=== PATIENT | female | born 1950 | race African-American/Black ===

== ENCOUNTER 2019-01-15 19:50 | Emergency (ER) | payer OTHER ==
[~2019-01-15] VITALS: Ht 149.9 cm; Wt 70.8 kg
[2019-01-15 22:55] VITALS: BP 186/79
== END 2019-01-15 23:50 | disposition home or self-care (01) ==
LOC: ER 19:50
DX: M54.41 Lumbago with sciatica, right side (principal); I10 Essential (primary) hypertension; J45.909 Unspecified asthma, uncomplicated; Z88.5 Allergy status to narcotic agent

== ENCOUNTER 2019-03-03 14:44 | Emergency (ER) | payer OTHER ==
[~2019-03-03] VITALS: Ht 149.9 cm; Wt 69.0 kg
[2019-03-03 14:50] VITALS: BP 141/68
[2019-03-03] MEDS ORDERED: K-DUR10 MEQ PO (14:59)
[2019-03-03] MEDS ORDERED: HYDROCODON-ACE1 EAC8 PO (14:59)
[2019-03-03] MEDS ORDERED: OMEPRAZOLE 20 M20 M1 PO (15:39)
[2019-03-03] MEDS ORDERED: CYCLOBENZAPRINE5 MG PO (15:52)
[2019-03-03] MEDS ORDERED: MOBIC15 MG PO (15:52)
[2019-03-04] MEDS ORDERED: NORFLEX100 MG PO (16:21)
== END 2019-03-03 15:55 | disposition home or self-care (01) ==
LOC: ER 14:44
DX: S39.012A Strain of muscle, fascia and tendon of lower back, initial encounter (principal); I10 Essential (primary) hypertension; J45.909 Unspecified asthma, uncomplicated; Z88.6 Allergy status to analgesic agent; Z88.8 Allergy status to other drugs, medicaments and biological substances; X58.XXXA Exposure to other specified factors, initial encounter; Y93.89 Activity, other specified; Y92.89 Other specified places as the place of occurrence of the external cause; Y99.8 Other external cause status

== ENCOUNTER 2019-03-04 12:19 | Emergency (ER) | payer OTHER ==
[~2019-03-04] VITALS: Ht 149.9 cm; Wt 69.0 kg
[~2019-03-04 12:19] MED LIST: CYCLOBENZAPRINE5 MG PO; HYDROCODON-ACE1 EAC8 PO; K-DUR10 MEQ PO; MOBIC15 MG PO; OMEPRAZOLE 20 M20 M1 PO
[2019-03-04] MEDS ORDERED: NORFLEX100 MG PO (16:21)
[2019-03-04 16:41] VITALS: BP 150/69
== END 2019-03-04 16:43 | disposition home or self-care (01) ==
LOC: ER 12:19
DX: R51 Headache (principal); I10 Essential (primary) hypertension; J45.909 Unspecified asthma, uncomplicated; Z88.5 Allergy status to narcotic agent; Z88.8 Allergy status to other drugs, medicaments and biological substances; Z79.899 Other long term (current) drug therapy

== ENCOUNTER 2019-09-17 18:01 | Emergency (ER) | payer OTHER ==
[~2019-09-17] VITALS: Ht 149.9 cm; Wt 66.7 kg
[~2019-09-17 18:01] MED LIST changes: +NORFLEX100 MG PO
[2019-09-17] MEDS ORDERED: TORADOL 10 MG T10 MG PO (20:07)
[2019-09-17 20:41] VITALS: BP 118/50
== END 2019-09-17 20:42 | disposition home or self-care (01) ==
LOC: ER 18:01
DX: M48.061 Spinal stenosis, lumbar region without neurogenic claudication (principal); I10 Essential (primary) hypertension; J45.909 Unspecified asthma, uncomplicated; E07.9 Disorder of thyroid, unspecified; Z79.899 Other long term (current) drug therapy; Z88.8 Allergy status to other drugs, medicaments and biological substances; Z88.5 Allergy status to narcotic agent

== ENCOUNTER 2019-10-16 13:29 | Emergency (ER) | payer OTHER ==
[~2019-10-16] VITALS: Ht 124.5 cm; Wt 69.0 kg
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
[~2019-10-16 13:29] MED LIST changes: +TORADOL 10 MG T10 MG PO
[2019-10-16 13:51] VITALS: BP 145/71
== END 2019-10-16 13:51 | disposition left against medical advice (07) ==
LOC: ER 13:29
DX: M54.5 Low back pain (principal); Z53.21 Procedure and treatment not carried out due to patient leaving prior to being seen by health care provider; V49.9XXA Car occupant (driver) (passenger) injured in unspecified traffic accident, initial encounter; Y93.89 Activity, other specified; Y92.89 Other specified places as the place of occurrence of the external cause; Y99.8 Other external cause status

== ENCOUNTER → 2020-06-19 | Outpatient (CLI) | payer OTHER | LOC: RAD 15:12 | PROVIDERS: ATTEND Nurse Practitioner | DX: S92.341A Displaced fracture of fourth metatarsal bone, right foot, initial encounter for closed fracture (principal); M79.89 Other specified soft tissue disorders; X58.XXXA Exposure to other specified factors, initial encounter; Y92.89 Other specified places as the place of occurrence of the external cause; Y93.89 Activity, other specified; Y99.8 Other external cause status ==

== ENCOUNTER → 2020-09-04 | Outpatient (CLI) | payer OTHER | LOC: ULTRA 16:11 | PROVIDERS: ATTEND Nurse Practitioner | DX: R22.43 Localized swelling, mass and lump, lower limb, bilateral (principal) ==

== ENCOUNTER 2020-11-10 16:40 | Emergency (ER) | payer OTHER ==
[~2020-11-10] VITALS: Ht 149.9 cm; Wt 68.5 kg
[2020-11-10 17:07] VITALS: BP 127/67
[2020-11-10] MEDS ORDERED: CATAPRES-TTS 20.2 MG PO (17:11)
[2020-11-10] MEDS ORDERED: LEVOTHYROXINE75 MC1 PO (17:12)
[2020-11-10] MEDS ORDERED: SIMVASTATIN80 MG PO (17:12)
[2020-11-10] MEDS ORDERED: HYDROCODON-ACE1 EAC7 PO (18:15)
== END 2020-11-10 18:20 | disposition home or self-care (01) ==
LOC: ER 16:40
DX: M54.41 Lumbago with sciatica, right side (principal); I10 Essential (primary) hypertension; J45.909 Unspecified asthma, uncomplicated; Z79.899 Other long term (current) drug therapy; Z88.5 Allergy status to narcotic agent; Z88.8 Allergy status to other drugs, medicaments and biological substances

== ENCOUNTER → 2020-12-09 | Outpatient (CLI) | payer OTHER ==
[~2020-12-09] VITALS: Ht 149.9 cm; Wt 72.1 kg
[~2020-12-09] MED LIST changes: +CATAPRES-TTS 20.2 MG PO; +CATAPRES0.2 MG PO; +HYDROCODON-ACE1 EAC7 PO; +LEVOTHYROXINE75 MC1 PO; +PERCOCET 7.5-31 EAC1 PO; +SIMVASTATIN80 MG PO
[2020-12-09 11:07] VITALS: BP 161/77
--- NOTE | 2020-12-09 11:53 | NUR ---
Pain Clinic Assessment: 1. History of Osteoarthritis: BACK History of Rheumatoid Arthritis: Not Applicable 2. Height: 4 ft. 11 in. 149.9 cm. Weight: 159.0 lb. oz. 72.122 kg. Patient's BMI: 32.1 3. Vital Signs: BP: 161/77 Pulse: 66 Resp: 18 Temp: 02 Sat: 98 ECG Mon: 4. Pain Intensity: 10 5. Fall Risk: Dizziness: Y Needs help standing or walking: Y Fallen in the last 3 months: N Fall risk comments: 6. Patient on Blood Thinner: None 7. History of Hypertension: N 8. Opioid Therapy greater than 6 weeks: Opiate Contract Signed: 9. Risk Assessment Tool Provided: 0 LOW RISK 10. Functional Assessment Tool: / 11. Recreational Drug Use: Never Drug Type: Tobacco Use: Never Smoker Tobacco Type: Amount or Packs/day: How Many Years: Alcohol Use: No Frequency: Quant:
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
== END ==
LOC: PAIN 10:10
PROVIDERS: ATTEND Anesthesiology Pain Medicine
DX: M51.16 Intervertebral disc disorders with radiculopathy, lumbar region (principal); M48.061 Spinal stenosis, lumbar region without neurogenic claudication; Z79.899 Other long term (current) drug therapy; Z79.891 Long term (current) use of opiate analgesic

== ENCOUNTER → 2020-12-10 | Outpatient (CLI) | payer OTHER ==
[~2020-12-10] VITALS: Ht 149.9 cm; Wt 72.1 kg
[~2020-12-10] MED LIST changes: +BACLOFEN20 MG PO
[2020-12-10 10:25] VITALS: BP 160/79
--- NOTE | 2020-12-10 10:38 | NUR ---
Pain Clinic Assessment: 1. History of Osteoarthritis: BACK History of Rheumatoid Arthritis: Not Applicable 2. Height: 4 ft. 11 in. 149.9 cm. Weight: 159.0 lb. oz. 72.122 kg. Patient's BMI: 32.1 3. Vital Signs: BP: 160/79 Pulse: 70 Resp: 18 Temp: 02 Sat: 100 ECG Mon: 4. Pain Intensity: 6 TO 10 5. Fall Risk: Dizziness: N Needs help standing or walking: Y Fallen in the last 3 months: N Fall risk comments: 6. Patient on Blood Thinner: None 7. History of Hypertension: N 8. Opioid Therapy greater than 6 weeks: Y Opiate Contract Signed: 9. Risk Assessment Tool Provided: 0 LOW RISK 10. Functional Assessment Tool: 11. Recreational Drug Use: Never Drug Type: Tobacco Use: Never Smoker Tobacco Type: Amount or Packs/day: How Many Years: Alcohol Use: No Frequency: Quant:
--- NOTE | 2020-12-16 10:58 | HPC ---
[address] [address] PAIN MANAGEMENT CONSULTATION Name: DORY GONZALES Room #: REG [facility] Josse#: [id number] Admission: 12/10/20 Attend Phys: Taj Gonzales DO Discharge: Date of : 46 Report #: [id number] THIS REPORT FOR: cc: Chula Bedoya Beth RNP Johnson, James E. DO ~ cc: MARY Louis DATE OF SERVICE: 12/10/2020 CHIEF COMPLAINT: Low back pain, right lower extremity pain and paresthesias. HISTORY OF PRESENT ILLNESS: As you know, the patient is a 70-year-old female with longstanding history of low back pain, right lower extremity pain with paresthesias. She states pain began 06/22/2019. No inciting injury or trauma. The patient was referred to our clinic by her nurse practitioner, Chula Bedoya, for evaluation to address lumbar radiculopathy. We saw the patient yesterday in the afternoon. The patient chose to delay the proposed injection as she was "nervous about her palpitations." She considered her options overnight and chose to return today to undergo the first in a series of lumbar epidural injections. She is placing her current pain score at approximately 6-10/10. There have been no changes in medication management since our visit of yesterday afternoon. ALLERGIES: MORPHINE, GABAPENTIN. CURRENT MEDICATIONS: Clonidine, oxycodone, simvastatin, levothyroxine, omeprazole. SOCIAL HISTORY: The patient reports herself as a nonsmoker. Denies IV or illicit drug use. Denies any chronic alcohol use. She retired from [employer] years ago, not working, not receiving workmen's compensation, unaccompanied today. IMAGING: No new imaging available. PQRS: The patient has known arthritic changes of lumbar spine, bilateral hips and knees, status post total knee arthroplasty. She is suffering from no rheumatoid arthritis. She is placing pain intensity today 6-01/11. She is a fall risk, but has not had a fall in last 3 months. She is utilizing a cane for ambulation. She is not on blood thinners, but is treated for hypertension. She is on chronic opioids, has a low opioid addiction potential based on assessment tool. Pain impact is 67 of 70, severe near complete interference of daily activities secondary to pain. PHYSICAL EXAMINATION: VITAL SIGNS: Blood pressure 160/79, pulse 70, respiratory rate 18 and [facility] [address] [place] [address] PAIN MANAGEMENT CONSULTATION Name: CHRISTIANDORY [id number] Admission: 12/10/20 Attend Phys: Taj Gonzales DO Discharge: Date of : 46 Report #: [id number] unlabored. The patient 100% on room air. Height 4 feet 11 inches tall, weight 159 pounds, BMI calculated 32.1. GENERAL: Well-developed, well-nourished, well-hydrated 70-year-old female appearing stated age, pain is rated today 6-10/10. HEENT: Normocephalic, atraumatic. She is wearing a mask in compliance with COVID-19 regulations. EXTREMITIES: Show no clubbing, no cyanosis and no appreciable edema. MUSCULOSKELETAL: Lower extremity strength is again symmetrical 5/5. Slight giveaway strength noted with hip flexion, knee extension on the right due to pain generation. Seated straight leg raising positive on right. Supine straight leg raising positive on the right. Gait is antalgic favoring right lower extremity. ASSESSMENT: 1. Symptomatic lumbar radiculopathy. 2. Displacement of lumbar intervertebral disk with radiculopathy. 3. Neural foraminal stenosis of lumbar spine. 4. Degeneration of lumbar spine. 5. Facet arthropathy of the lumbar spine. 6. Chronic intractable pain. PLAN: 1. The patient returns today in followup visit requesting to undergo lumbar epidural injection under fluoroscopic guidance. We saw the patient yesterday in consultation. We provided the patient with different treatment options. She chose to undergo lumbar epidural injection, but at that visit, she did not wish to undergo the injection as she was concerned about palpitations. She considers her options overnight and contacted our clinic this morning on 12/10/2020 requesting a lumbar epidural injection. She made today's appointment to undergo the procedure. She has been advised of the risks and the benefits of a lumbar epidural injection. These risks include but are not necessarily limited to bleeding, bruising, infection, worsening pain, no relief of pain, also risk of temporary or permanent muscle weakness, temporary or permanent nerve damage, possible paralysis, and . The patient states she understood and wished to proceed. 2. No medication changes made at today's visit. We recommend the patient continue current medical therapy as prior prescribed. 3. We plan to see the patient back in followup visit on an as-needed basis for the next in the series of lumbar epidural injections. We are hopeful the patient will see good benefit with today's procedure. PROCEDURE NOTE DESCRIPTION OF PROCEDURE: L4-L5 interlaminar epidural injection under fluoroscopic guidance. [address] [address] PAIN MANAGEMENT CONSULTATION Name: DORY GONZALES Room #: REG CLI Josse#: [id number] Admission: 12/10/20 Attend Phys: Taj CorieLily Gonzales DO Discharge: Date of : 46 Report #: [id number] This is the first procedure of the first series that the patient is undergoing. After obtaining written consent, the patient was taken back to the fluoroscopy suite, placed in a prone position with pillow under the abdomen to decrease lumbar lordosis. The skin overlying the lumbosacral area was then prepped and draped in aseptic fashion. The lumbar vertebral interspace was then identified by AP fluoroscopy. The skin and subcutaneous tissue overlying the target site of injection was anesthetized with 3 mL 1% lidocaine. A 20-gauge 3.5-inch Tuohy needle was then advanced under fluoroscopic guidance towards the epidural space using a paramedian approach. The epidural space was identified using loss of resistance to air technique. After negative aspiration for heme or cerebrospinal fluid, a total of 1 mL of Omnipaque was injected. A lumbar epidurogram was confirmed using both AP and lateral fluoroscopy. After negative aspiration for heme or cerebrospinal fluid, 5 mL of solution containing 2 mL 40 mg per mL 80 mg total triamcinolone along with 3 mL of lidocaine, 1% injected was injected in increments. Contrast spread was noted posterior epidural space. The needle was then retracted approximately half way and needle tract flushed with 1 mL of 1% of lidocaine. Needle was then removed. There were no apparent sensory or motor deficits in the lower extremity following the procedure. A sterile bandage was placed over the injection site. The heart rate, pulse, oximetry and blood pressure were continuously monitored after the procedure. There were no complications. The patient tolerated the procedure well and was carefully escorted to the recovery room in stable condition. There were no apparent complications. After meeting discharge criteria, the patient was then discharged home. <ELECTRONICALLY SIGNED> By: Taj Gonzales DO 12/16/20 [id number] Taj Gonzales DO /nt
== END | disposition home or self-care (01) ==
LOC: PAIN 08:51
PROVIDERS: ATTEND Anesthesiology Pain Medicine
DX: M51.16 Intervertebral disc disorders with radiculopathy, lumbar region (principal); M47.26 Other spondylosis with radiculopathy, lumbar region; M48.061 Spinal stenosis, lumbar region without neurogenic claudication; G89.29 Other chronic pain; I10 Essential (primary) hypertension; M19.90 Unspecified osteoarthritis, unspecified site; Z98.890 Other specified postprocedural states; Z79.899 Other long term (current) drug therapy; Z88.8 Allergy status to other drugs, medicaments and biological substances

== ENCOUNTER 2020-12-17 14:36 | Emergency (ER) | payer OTHER ==
[~2020-12-17] VITALS: Ht 149.9 cm; Wt 70.8 kg
[~2020-12-17 14:36] MED LIST changes: -BACLOFEN20 MG PO
[2020-12-17 14:41] VITALS: BP 177/72
[2020-12-17] MEDS ORDERED: BACLOFEN20 MG PO (14:45)
== END 2020-12-17 15:32 | disposition home or self-care (01) ==
LOC: ER 14:36
DX: G89.29 Other chronic pain (principal); M54.5 Low back pain; Z98.890 Other specified postprocedural states; Z79.891 Long term (current) use of opiate analgesic; Z79.899 Other long term (current) drug therapy; Z88.5 Allergy status to narcotic agent; Z88.8 Allergy status to other drugs, medicaments and biological substances